=== PATIENT | male | born 1950 | race Caucasian/White ===

== ENCOUNTER 2017-01-09 05:53 | Day surgery (SDC) | payer MEDICARE, BC ==
[2017-01-09] MEDS ORDERED: Midazolam 1 MG/ML 2 ML SDV ONE (06:20)
[2017-01-09] MEDS ORDERED: fentaNYL 100 MCG/2 ML SDV ONE (06:20)
[2017-01-09] MEDS ORDERED: fentaNYL 100 MCG/2 ML SDV IV ONE ×3 (06:54→12:50)
[2017-01-09] MEDS ORDERED: Midazolam 1 MG/ML 2 ML SDV IV ONE ×4 (06:54→12:50)
[2017-01-09] MEDS ORDERED: Dextrose 5%-0.45% NaCl 1,000 ML IV SCH (07:00)
[2017-01-09] MEDS ORDERED: Sodium Chloride 0.9% 10 ML Syringe FLUSH PRN (07:00)
--- NOTE | 2017-01-09 07:42 | OR ---
DATE: 01/09/2017 PROCEDURE: Total colonoscopy. INSTRUMENT USED: CF-H180AL Olympus video colonoscope. PREMEDICATIONS: Fentanyl 100 mcg intravenous, Versed 3 mg intravenous, nasal O2 cannula. The procedure was done under pulse oximetry, BP recording, and security monitor. INDICATION: The patient with status post rectal cancer resection and permanent colostomy. Surveillance colonoscopy examination is done for detection of any polypoid lesions and removal, endoscopic hemostasis therapy if needed. Initial examination of the colostomy site was unremarkable. DESCRIPTION OF PROCEDURE: Colonoscope was passed with ease up to the ileocecal area, photographs were taken of the normal appearing cecum, identified by landmarks of appendiceal orifice and double-bulged ileocecal folds. No bleeding was noted from any of the visualized areas at the commencement of the examination. A few scattered diverticula were noted in the distal left colon. No stricture. No vascular ectasia. No large isolated ulcerations seen. No evidence of diffuse inflammatory bowel disease in the form of friability, contact bleeding, or ulcerations. No polyp or tumor mass identified. Probing the proximal sides of folds and flexures, using adequate distention and clearing up the stool material, withdrawal of the scope was made, cecum to colostomy site more than 6 minutes. No bleeding was noted from any of the visualized areas at the completion of examination. IMPRESSION: Diverticulosis. The patient tolerated the procedure well. [facility] /[id number]
--- NOTE | 2017-01-09 10:24 | LETTER ---
01/09/2017 Kim Conde, Oncology Service [address] [place] [id number] RE: OLMAN WOODARD Cira : 1950 Dear Ms. Conde: Mr. Olman Woodard had colonoscopic examination done this morning, and he tolerated the procedure well. I herewith send a copy of the endoscopy note and photographs for your review. Thank you. Sincerely, [facility] /[id number]
[2017-02-26 13:35] VITALS: BP 114/56
== END 2017-01-09 09:30 | disposition home or self-care (01) ==
LOC: DL.ENDO 05:53
PROVIDERS: ATTEND Internal Medicine Gastroenterology
DX: Z12.11 Encounter for screening for malignant neoplasm of colon (principal); K57.90 Diverticulosis of intestine, part unspecified, without perforation or abscess without bleeding
CPT/HCPCS: G0121; J2250; J3010; J7042